=== PATIENT | male | born 1955 | race Two or more races ===

== ENCOUNTER 2017-04-01 11:32 | Emergency (ER) | payer MEDICARE, MEDICAID ==
[2017-04-01 12:36] VITALS: BP 132/84
--- NOTE | 2017-04-12 22:00 | UC ---
Throat Pain/Nasal Yasir HPI - HPI Summary HPI Summary: Sore throat for a few days. There is no fever or congestion. No GI complaints. No cough. - History of Current Complaint Chief Complaint: UCRespiratory Stated Complaint: SORE THROAT Time Seen by Provider: 04/01/17 12:29 Hx Obtained From: Patient Onset/Duration: Gradual Onset, Lasting Days Severity: Moderate Pain Intensity: 7 Pain Scale Used: 0-10 Numeric Cough: None Associated Signs & Symptoms: Positive: Dysphagia - Allergies/Home Medications Allergies/Adverse Reactions: Allergies Allergy/AdvReac Type Severity Reaction Status Date / Time No Known Allergies Allergy Verified 04/01/17 12:24 Home Medications: Home Medications Hydrocodone Bitartrate [Zohydro ER] 15 mg PO Q4H PRN 04/01/17 [History Confirmed 04/01/17] PMH/Surg Hx/FS Hx/Imm Hx Previously Healthy: Yes - Surgical History Surgical History: Yes Surgery Procedure, Year, and Place: [facility] 01/2017 [facility] - Family History Known Family History: Positive: Other - no throat related family history. - Social History Alcohol Use: None Substance Use Type: Marijuana, Prescribed Substance Use Comment - Amount & Last Used: marijuana 2016 Smoking Status (MU): Former Smoker When Did the Patient Quit Smoking/Using Tobacco: 2007 Review of Systems ENT: Sore Throat All Other Systems Reviewed And Are Negative: Yes Physical Exam Triage Information Reviewed: Yes Appearance: Well-Appearing, No Pain Distress, Well-Nourished Vital Signs: Initial Vital Signs Temp 98.4 F 04/01/17 12:29 Pulse 72 04/01/17 12:29 Resp 20 04/01/17 12:29 BP 132/84 04/01/17 12:29 Pulse Ox 96 04/01/17 12:29 Vital Signs Reviewed: Yes Eyes: Positive: Conjunctiva Clear ENT: Positive: Normal ENT inspection, Pharyngeal erythema, TMs normal. Negative : TM bulging, TM dull, TM red, Tonsillar swelling, Tonsillar exudate Neck: Positive: Supple, Nontender, No Lymphadenopathy Respiratory: Positive: Normal breath sounds, No respiratory distress, No accessory muscle use. Negative: Respiratory distress, Decreased breath sounds, Accessory muscle use, Crackles, Rhonchi, Stridor Cardiovascular: Positive: RRR, No Murmur, Pulses Normal, Brisk Capillary Refill Abdomen Description: Positive: Nontender, No Organomegaly. Negative: Distended , Guarding Musculoskeletal: Positive: Strength Intact, ROM Intact, No Edema Neurological: Positive: Alert, Muscle Tone Normal. Negative: Fatigued Psychological: Positive: Age Appropriate Behavior Skin: Negative: rashes Throat Pain/Nasal Course/Dx - Differential Dx/Diagnosis Provider Diagnoses: pharyngitis. possible thrush. Discharge - Discharge Plan Condition: Good Disposition: HOME Prescriptions: Nystatin SUSPENSION ORAL SYR* 100,000 units PO TID #200 udc Patient Education Materials: Pharyngitis (ED), Oral Candidiasis (ED) Referrals: No Primary Care Phys,NOPCP [Primary Care Provider] - Additional Instructions: REturn for any worsening or if this does not improve.
== END 2017-04-01 13:22 | disposition home or self-care (01) ==
LOC: UCCORT 11:32
DX: J02.9 Acute pharyngitis, unspecified (principal); Z90.49 Acquired absence of other specified parts of digestive tract; F12.90 Cannabis use, unspecified, uncomplicated; Z87.891 Personal history of nicotine dependence
CPT/HCPCS: 87651; 99212; G0463

== ENCOUNTER 2021-04-21 16:21 | Inpatient (IN) ==
[2021-04-21 16:36] LABS: ABS Lymphocytes 0.7 10^3/ul (1.0-4.8); ABS Monocytes 0.4 10^3/ul (0-0.8); ABS Neutrophils 5.4 10^3/ul (1.5-7.7); Eosinophil % 0.1 %; Hematocrit 47 % (42-52); Hemoglobin 14.7 g/dL (14.0-18.0); Lymphocyte % 10.5 %; Mean Corpuscular HGB Conc 31 g/dL (31-36); Mean Corpuscular Hemoglobin 29 pg (27-31); Mean Corpuscular Volume 93 fL (80-94); Nucleated Red Blood Cells % 0.1; Platelet Count 197 10^3/uL (150-450); Red Blood Count 5.05 10^6 /uL (4.18-5.48); Red Cell Distribution Width 17 % (10-15); White Blood Count 6.5 10^3/uL (3.5-10.8)
[2021-04-21 16:53] LABS: ALT 22 U/L (7-52); AST 25 U/L (13-39); Albumin 4.5 g/dL (3.2-5.2); Albumin/Globulin Ratio 1.3 (1-3); Alkaline Phosphatase 84 U/L (35-149); Anion Gap 21 mmol/L (2-11); Blood Urea Nitrogen 30 mg/dL (6-24); CO2 Carbon Dioxide 23 mmol/L (22-32); Calcium 9.3 mg/dL (8.6-10.3); Chloride 96 mmol/L (101-111); Globulin 3.5 g/dL (2-4); Glucose 233 mg/dL (70-100); Potassium 4.8 mmol/L (3.5-5.0); Sodium 140 mmol/L (135-145); eGFR CKD-EPI 31.9 (>60)
[2021-04-21 16:55] LABS: Troponin I 0.02 ng/mL (<0.03)
[2021-04-21 17:04] LABS: Acetaminophen < 15 mcg/mL; Alcohol, S < 13 mg/dL (<13); Salicylate < 2.50 mg/dL (<30)
[2021-04-21] MEDS ORDERED: Lactated Ringers 1000 ml BAG 1,000 ML IV ONE ×2 (17:07→20:27)
[2021-04-21] MEDS ORDERED: Ondansetron 4 mg VIAL 2 MG/ML 2 ml VIAL IV ONE (17:20)
[2021-04-21] MEDS ORDERED: Azithromycin 500 mg/250 ml NS 500 MG/250 ML BAG IVPB ONE (17:36)
[2021-04-21] MEDS ORDERED: cefTRIAXone 2 GM ADDV.VIAL 2 GM in NS 0.9% 100 ml BAG 100 ML IVPB ONE (17:36)
[2021-04-21 19:16] LABS: Urine Appearance Cloudy; Urine Bilirubin Negative (Negative); Urine Blood 1+ (Negative); Urine Color Yellow; Urine Glucose Negative (Negative); Urine Ketones Trace (Negative); Urine Nitrite Negative (Negative); Urine Protein 1+(30 mg/dL) (Negative); Urine Specific Gravity 1.019 (1.002-1.030); Urine Urobilinogen Negative (Negative)
[2021-04-21 19:22] LABS: Urine Bacteria Absent (Absent); Urine Red Blood Cell Trace(0-2/hpf) (Absent); Urine Squamous Epithelial Cell Present (Absent); Urine White Blood Cell Trace(0-5/hpf) (Absent)
[2021-04-21] MEDS ORDERED: Ondansetron 4 mg VIAL 2 MG/ML 2 ml VIAL IV PRN (21:07)
[2021-04-21] MEDS ORDERED: Piperacillin/Tazobac ADVAN 3.375 GM in NS 0.9% 100 ml BAG 100 ML IV ONE (21:15)
[2021-04-21] MEDS ORDERED: Dextrose 50% Syringe 50 ml 25 GM/50 ML SYRINGE IV PUSH PRN (21:25)
[2021-04-21] MEDS ORDERED: NS 0.9% 1000 ml BAG 1,000 ML IV SCH (21:30)
[2021-04-21] MEDS ORDERED: Zosyn per Pharmacy NOTE FOLLOW UP SCH (22:00)
[2021-04-21 22:08] LABS: Urine Benzodiazepine Screen None Detected (None Detect); Urine Cannabinoids Screen None Detected (None Detect); Urine Opiates Screen Presumptive Positive (None Detect)
[2021-04-21 22:33] LABS: Urine Creatinine Concentration 155.94 mg/dL
[2021-04-22] MEDS: Enoxaparin 40 MG/0.4 ML SYR SUBCUT SCH ×2 (01:11→20:24)
[2021-04-22] MEDS ORDERED: ZOSYN 3.375 GM Q8H per EXTENDED INFUSION IV SCH (02:00)
[2021-04-22 05:18] LABS: ABS Lymphocytes 0.9 10^3/ul (1.0-4.8); ABS Monocytes 0.7 10^3/ul (0-0.8); Eosinophil % 0.1 %; Hematocrit 38 % (42-52); Hemoglobin 12.5 g/dL (14.0-18.0); Lymphocyte % 11.3 %; Mean Corpuscular HGB Conc 33 g/dL (31-36); Mean Corpuscular Hemoglobin 29 pg (27-31); Mean Corpuscular Volume 89 fL (80-94); Mean Platelet Volume 7.1 fL (7.4-10.4); Nucleated Red Blood Cells % 0.1; Platelet Count 147 10^3/uL (150-450); Red Blood Count 4.28 10^6 /uL (4.18-5.48); Red Cell Distribution Width 16 % (10-15); White Blood Count 7.5 10^3/uL (3.5-10.8)
[2021-04-22 05:31] LABS: Calcium 8.2 mg/dL (8.6-10.3); Potassium 4.5 mmol/L (3.5-5.0)
[2021-04-22] MEDS: DULoxetine DR 30 mg CAP PO SCH (09:35)
[2021-04-22] MEDS: CMC:Meloxicam 7.5 mg TAB (NF) PO SCH (09:36)
[2021-04-22] MEDS: cefTRIAXone 1 gm/50 mL NS BAG 1 GM/50 ML BAG IVPB SCH (18:02)
[2021-04-23 05:44] LABS: ABS Eosinophils 0.2 10^3/ul (0-0.6); ABS Lymphocytes 1.8 10^3/ul (1.0-4.8); ABS Monocytes 0.6 10^3/ul (0-0.8); ABS Neutrophils 4.2 10^3/ul (1.5-7.7); Eosinophil % 3.4 %; Hematocrit 40 % (42-52); Hemoglobin 12.8 g/dL (14.0-18.0); Lymphocyte % 26.7 %; Mean Corpuscular HGB Conc 32 g/dL (31-36); Mean Corpuscular Hemoglobin 29 pg (27-31); Mean Corpuscular Volume 91 fL (80-94); Mean Platelet Volume 7.6 fL (7.4-10.4); Platelet Count 134 10^3/uL (150-450); Red Blood Count 4.38 10^6 /uL (4.18-5.48); Red Cell Distribution Width 16 % (10-15); White Blood Count 6.9 10^3/uL (3.5-10.8)
[2021-04-23 05:58] LABS: Albumin 3.5 g/dL (3.2-5.2); Albumin/Globulin Ratio 1.2 (1-3); Calcium 8.5 mg/dL (8.6-10.3); Potassium 4.4 mmol/L (3.5-5.0); Total Bilirubin 0.3 mg/dL (0.2-1.0); Total Protein 6.5 g/dL (6.4-8.9); eGFR CKD-EPI 96.5 (>60)
[2021-04-23] MEDS: CMC:Meloxicam 7.5 mg TAB (NF) PO SCH (09:15)
[2021-04-23] MEDS: DULoxetine DR 30 mg CAP PO SCH (09:19)
[2021-04-23] MEDS: cefTRIAXone 1 gm/50 mL NS BAG 1 GM/50 ML BAG IVPB SCH (18:43)
[2021-04-23] MEDS: Enoxaparin 40 MG/0.4 ML SYR SUBCUT SCH (21:27)
[2021-04-24 06:52] LABS: ABS Eosinophils 0.3 10^3/ul (0-0.6); ABS Lymphocytes 1.6 10^3/ul (1.0-4.8); ABS Monocytes 0.6 10^3/ul (0-0.8); ABS Neutrophils 4.1 10^3/ul (1.5-7.7); Eosinophil % 4.6 %; Hematocrit 41 % (42-52); Hemoglobin 13.2 g/dL (14.0-18.0); Lymphocyte % 23.5 %; Mean Corpuscular HGB Conc 33 g/dL (31-36); Mean Corpuscular Hemoglobin 29 pg (27-31); Mean Corpuscular Volume 89 fL (80-94); Mean Platelet Volume 7.2 fL (7.4-10.4); Platelet Count 141 10^3/uL (150-450); Red Blood Count 4.55 10^6 /uL (4.18-5.48); Red Cell Distribution Width 16 % (10-15); White Blood Count 6.6 10^3/uL (3.5-10.8)
[2021-04-24 07:08] LABS: Albumin 3.4 g/dL (3.2-5.2); Albumin/Globulin Ratio 1.1 (1-3); Calcium 8.8 mg/dL (8.6-10.3); Potassium 4.3 mmol/L (3.5-5.0); Total Bilirubin 0.4 mg/dL (0.2-1.0); Total Protein 6.4 g/dL (6.4-8.9); eGFR CKD-EPI 98.7 (>60)
[2021-04-24] MEDS: CMC:Meloxicam 7.5 mg TAB (NF) PO SCH (09:15)
[2021-04-24] MEDS: DULoxetine DR 30 mg CAP PO SCH (09:16)
[2021-04-24 15:53] VITALS: BP 145/61
== END 2021-04-24 17:26 | disposition home or self-care (01) | DRG 70 ==
LOC: ED 16:21 → EDHOLD 16:21 → SUATTDRO 21:07 → MEDTELE 04-22 00:10 → SUATTDRO 04-22 13:25
PROVIDERS: ADMIT Internal Medicine; ATTEND Hospitalist

== ENCOUNTER 2021-04-27 14:53 | Observation (INO) ==
[2021-04-27] MEDS ORDERED: Albuterol/Ipratropium NEB.SOL (2.5/0.5 MG) 3 ML NEB.SOLN INH ONE (15:41)
[2021-04-27 15:59] LABS: PCO2 Arterial 59 mmHg (35-45); PO2 Arterial 68 mmHg (80-100)
[2021-04-27 16:16] LABS: ABS Lymphocytes 0.4 10^3/ul (1.0-4.8); ABS Monocytes 0.6 10^3/ul (0-0.8); ABS Neutrophils 6.5 10^3/ul (1.5-7.7); Hematocrit 46 % (42-52); Hemoglobin 14.8 g/dL (14.0-18.0); Lymphocyte % 5.8 %; Mean Corpuscular HGB Conc 32 g/dL (31-36); Mean Corpuscular Hemoglobin 29 pg (27-31); Mean Corpuscular Volume 90 fL (80-94); Mean Platelet Volume 7.3 fL (7.4-10.4); Platelet Count 178 10^3/uL (150-450); Red Blood Count 5.12 10^6 /uL (4.18-5.48); Red Cell Distribution Width 16 % (10-15); White Blood Count 7.6 10^3/uL (3.5-10.8)
[2021-04-27] MEDS ORDERED: NS 0.9% 1000 ml BAG 1,000 ML IV ONE ×2 (16:32→18:40)
[2021-04-27 16:36] LABS: ALT 29 U/L (7-52); Albumin 4.3 g/dL (3.2-5.2); Albumin/Globulin Ratio 1.2 (1-3); Alkaline Phosphatase 72 U/L (35-149); Blood Urea Nitrogen 29 mg/dL (6-24); CO2 Carbon Dioxide 34 mmol/L (22-32); Calcium 9.1 mg/dL (8.6-10.3); Chloride 97 mmol/L (101-111); Creatine Kinase 91 U/L (10-223); Globulin 3.6 g/dL (2-4); Glucose 124 mg/dL (70-100); Sodium 138 mmol/L (135-145); Total Protein 7.9 g/dL (6.4-8.9); eGFR CKD-EPI 28.5 (>60)
[2021-04-27 16:47] LABS: Anion Gap 7 mmol/L (2-11)
[2021-04-27 17:50] LABS: Magnesium 2.1 mg/dL (1.9-2.7); Potassium Redraw 4.7 mmol/L (3.5-5.0)
[2021-04-27 18:00] LABS: Urine Appearance Cloudy; Urine Bilirubin Negative (Negative); Urine Blood 1+ (Negative); Urine Color Yellow; Urine Glucose Negative (Negative); Urine Ketones Negative (Negative); Urine Nitrite Negative (Negative); Urine Protein 1+(30 mg/dL) (Negative); Urine Specific Gravity 1.014 (1.002-1.030); Urine Urobilinogen Negative (Negative)
[2021-04-27 18:07] LABS: Urine Bacteria 1+ (Absent); Urine Red Blood Cell Trace(0-2/hpf) (Absent); Urine Squamous Epithelial Cell Present (Absent); Urine White Blood Cell Trace(0-5/hpf) (Absent)
[2021-04-27] MEDS ORDERED: Dextrose 50% Syringe 50 ml 25 GM/50 ML SYRINGE IV PUSH PRN (18:34)
[2021-04-27] MEDS ORDERED: Albuterol HFA INHALER 8 gm MDI INH PRN (18:40)
[2021-04-27] MEDS: Enoxaparin 40 MG/0.4 ML SYR SUBCUT SCH (19:44)
[2021-04-28 05:47] LABS: ABS Lymphocytes 1.5 10^3/ul (1.0-4.8); ABS Monocytes 0.7 10^3/ul (0-0.8); ABS Neutrophils 5.3 10^3/ul (1.5-7.7); Eosinophil % 0.4 %; Hematocrit 39 % (42-52); Hemoglobin 12.6 g/dL (14.0-18.0); Lymphocyte % 19.7 %; Mean Corpuscular HGB Conc 32 g/dL (31-36); Mean Corpuscular Hemoglobin 29 pg (27-31); Mean Corpuscular Volume 89 fL (80-94); Mean Platelet Volume 7.3 fL (7.4-10.4); Platelet Count 133 10^3/uL (150-450); Red Cell Distribution Width 16 % (10-15); White Blood Count 7.5 10^3/uL (3.5-10.8)
[2021-04-28 06:11] LABS: Albumin 3.6 g/dL (3.2-5.2); Albumin/Globulin Ratio 1.3 (1-3); Calcium 8.1 mg/dL (8.6-10.3); Globulin 2.8 g/dL (2-4); Potassium 4.8 mmol/L (3.5-5.0); Total Bilirubin 0.3 mg/dL (0.2-1.0); Total Protein 6.4 g/dL (6.4-8.9); eGFR CKD-EPI 64.7 (>60)
[2021-04-28] MEDS: Mometasone/Formoter 200/5 MDI INH SCH ×2 (07:26→19:20)
[2021-04-28] MEDS: Fluticasone NASAL SPRAY 50MCG 16 gm SPRAY BTL INTRANASAL SCH (08:17)
[2021-04-28] MEDS: Multivitamins/Minerals TAB PO SCH (08:18)
[2021-04-28] MEDS: DULoxetine DR 30 mg CAP PO SCH (08:18)
[2021-04-28] MEDS: Polyethylene Glycol 3350 17 GM PACKET PO SCH ×2 (08:19→08:22)
[2021-04-28] MEDS: NS 0.9% 1000 ml BAG 1,000 ML IV SCH ×2 (08:25→17:52)
[2021-04-28] MEDS: Enoxaparin 40 MG/0.4 ML SYR SUBCUT SCH (20:55)
[2021-04-29] MEDS: Mometasone/Formoter 200/5 MDI INH SCH (07:17)
[2021-04-29 09:50] LABS: Calcium 8.5 mg/dL (8.6-10.3); Potassium 4.2 mmol/L (3.5-5.0)
[2021-04-29] MEDS: DULoxetine DR 30 mg CAP PO SCH (10:14)
[2021-04-29] MEDS: Multivitamins/Minerals TAB PO SCH (10:15)
[2021-04-29] MEDS: Fluticasone NASAL SPRAY 50MCG 16 gm SPRAY BTL INTRANASAL SCH (10:16)
[2021-04-29] MEDS: Polyethylene Glycol 3350 17 GM PACKET PO SCH (10:16)
[2021-04-29 14:08] LABS: C Reactive Protein 8.81 mg/L (<8.01)
[2021-04-29 17:56] VITALS: BP 125/61
== END 2021-04-29 18:00 | disposition home or self-care (01) ==
LOC: ED 14:53 → EDHOLD 14:53 → MEDTELE 21:29
PROVIDERS: ADMIT Nurse Practitioner Adult Health; ATTEND Hospitalist

== ENCOUNTER 2022-02-27 19:04 | Inpatient (IN) ==
[2022-02-27 19:21] LABS: ABS Lymphocytes 0.7 10^3/ul (1.0-4.8); ABS Monocytes 1.1 10^3/ul (0-0.8); ABS Neutrophils 10.7 10^3/ul (1.5-7.7); Hematocrit 49 % (42-52); Lymphocyte % 5.5 %; Mean Corpuscular HGB Conc 33 g/dL (31-36); Mean Corpuscular Hemoglobin 29 pg (27-31); Mean Corpuscular Volume 87 fL (80-94); Mean Platelet Volume 7.2 fL (7.4-10.4); Nucleated Red Blood Cells % 0.1; Platelet Count 182 10^3/uL (150-450); Red Cell Distribution Width 16 % (10-15); White Blood Count 12.5 10^3/uL (3.5-10.8)
[2022-02-27 19:32] LABS: PCO2 Arterial 32 mmHg (35-45); PO2 Arterial 79 mmHg (80-100)
[2022-02-27] MEDS ORDERED: Lactated Ringers 1000 ml BAG 1,000 ML IV ONE ×3 (19:34→20:09)
[2022-02-27 19:42] LABS: High Sens Troponin Baseline 574 pg/mL (<20)
[2022-02-27] MEDS ORDERED: Acetaminophen IV 1 GM/100ML 1,000 MG/100 ML BAG IV ONE (19:45)
[2022-02-27] MEDS ORDERED: Piperacillin/Tazobac ADVAN 3.375 GM in NS 0.9% 100 ml BAG 100 ML IV ONE ×2 (19:54→21:30)
[2022-02-27] MEDS ORDERED: Vancomycin 1,500 MG in NS 0.9% 250 ml 250 ML IVPB ONE (19:54)
[2022-02-27 19:59] LABS: ALT 82 U/L (7-52); AST 185 U/L (13-39); Acetaminophen < 15 mcg/mL; Albumin/Globulin Ratio 1.4 (1-3); Alcohol, S < 13 mg/dL (<13); Alkaline Phosphatase 80 U/L (35-149); Anion Gap 19 mmol/L (2-11); Blood Urea Nitrogen 50 mg/dL (6-24); CO2 Carbon Dioxide 25 mmol/L (22-32); Calcium 9.1 mg/dL (8.6-10.3); Chloride 98 mmol/L (101-111); Globulin 2.8 g/dL (2-4); Glucose 96 mg/dL (70-100); Potassium 4.6 mmol/L (3.5-5.0); Salicylate < 2.50 mg/dL (<30); Sodium 142 mmol/L (135-145); Total Protein 6.8 g/dL (6.4-8.9)
[2022-02-27 20:53] LABS: High Sensitivity Troponin 1 Hr 646 pg/mL (<20)
[2022-02-27] MEDS ORDERED: Vancomycin 2,000 MG in NS 0.9% 500 ml BAG 500 ML IVPB ONE (21:00)
[2022-02-27] MEDS ORDERED: Acetaminophen IV 1 GM/100ML 1,000 MG/100 ML BAG IV PRN (21:30)
[2022-02-27] MEDS ORDERED: Dextrose 50% Syringe 50 ml 25 GM/50 ML SYRINGE IV PUSH PRN (21:30)
[2022-02-27] MEDS ORDERED: Albuterol 2.5mg/3 ml (0.083%) NEB.SOLN INH PRN (21:38)
[2022-02-27 21:55] LABS: C Reactive Protein 84.17 mg/L (<8.01)
[2022-02-27] MEDS ORDERED: Heparin 5000 UNITS/ML 1 mL VIAL SUBCUT SCH (22:00)
[2022-02-27] MEDS ORDERED: Azithromycin 500 mg/250 ml NS 500 MG/250 ML BAG IVPB SCH (22:00)
[2022-02-27] MEDS ORDERED: Zosyn per Pharmacy NOTE FOLLOW UP SCH (22:00)
[2022-02-27] MEDS ORDERED: Lactated Ringers 1000 ml BAG 1,000 ML IV SCH ×2 (22:00→22:28)
[2022-02-27 22:16] LABS: Creatine Kinase 9826 U/L (10-223)
[2022-02-27 22:54] LABS: Erythrocyte Sed Rate 18 mm/Hr (0-19)
[2022-02-28] MEDS: DOXYcycline 100 MG in NS 0.9% 250 ml 250 ML IVPB SCH ×3 (00:23→20:58)
[2022-02-28] MEDS: Nystatin TOP POWDER 15 GM BTL TOPICAL SCH ×4 (00:24→20:38)
[2022-02-28] MEDS: ZOSYN 3.375 GM Q8H per EXTENDED INFUSION IV SCH ×3 (00:24→17:26)
[2022-02-28] MEDS ORDERED: Lorazepam PYXIS KEY PRN (02:40)
[2022-02-28] MEDS ORDERED: LORazepam 2 mg VIAL 1 ml IV PUSH ONE (02:40)
[2022-02-28] MEDS ORDERED: Lorazepam PYXIS KEY ONE (02:53)
[2022-02-28 05:14] LABS: ABS Basophils 0.1 10^3/ul (0-0.2); ABS Lymphocytes 1.2 10^3/ul (1.0-4.8); ABS Neutrophils 9.8 10^3/ul (1.5-7.7); Hematocrit 43 % (42-52); Hemoglobin 14.3 g/dL (14.0-18.0); Mean Corpuscular HGB Conc 33 g/dL (31-36); Mean Corpuscular Hemoglobin 28 pg (27-31); Mean Corpuscular Volume 85 fL (80-94); Mean Platelet Volume 7.3 fL (7.4-10.4); Nucleated Red Blood Cells % 0.1; Platelet Count 172 10^3/uL (150-450); Red Blood Count 5.03 10^6 /uL (4.18-5.48); Red Cell Distribution Width 16 % (10-15)
[2022-02-28 05:24] LABS: Activated Partial Thrombo Time 26.9 seconds (26.0-38.0); INR 1.45 (0.88-1.18)
[2022-02-28 05:32] LABS: Urine Creatinine Concentration 87.37 mg/dL
[2022-02-28 05:35] LABS: Urine Bacteria 1+ (Absent); Urine Red Blood Cell 1+(3-5/hpf) (Absent); Urine White Blood Cell 2+(11-20/hpf) (Absent)
[2022-02-28 05:45] LABS: Urine Appearance Cloudy; Urine Bilirubin Negative (Negative); Urine Blood 3+ (Large) (Negative); Urine Color Yellow; Urine Glucose Negative (Negative); Urine Ketones Trace (Negative); Urine Nitrite Negative (Negative); Urine Protein 2+ (100 mg/dL) (Negative); Urine Urobilinogen 0.2 (Negative) (Negative); Urine pH 5.5 (5.0-9.0)
[2022-02-28 05:59] LABS: Albumin 3.2 g/dL (3.2-5.2); Albumin/Globulin Ratio 1.3 (1-3); Direct Bilirubin 0.2 mg/dL (0.03-0.18); Globulin 2.4 g/dL (2-4); Indirect Bilirubin 0.5 mg/dL (0.3-1.0); Potassium 4.3 mmol/L (3.5-5.0); Total Bilirubin 0.7 mg/dL (0.2-1.0); Total Protein 5.6 g/dL (6.4-8.9)
[2022-02-28] MEDS: Mometasone/Formoter 200/5 MDI INH SCH ×2 (07:38→18:58)
[2022-02-28] MEDS ORDERED: Sulfur Hexaflouride MICROSPHR 25 MG VIAL ONE (08:32)
[2022-02-28] MEDS: Pantoprazole VIAL 40 MG VIAL IV SCH (08:56)
[2022-02-28] MEDS ORDERED: Thiamine 100 MG/ML 2 ml VIAL (200 mg) IM ONE (10:20)
[2022-02-28] MEDS: Lactated Ringers 1000 ml BAG 1,000 ML IV SCH (10:47)
[2022-02-28] MEDS ORDERED: Multivitamins/Minerals TAB PO SCH (11:00)
[2022-02-28] MEDS: Heparin 5000 UNITS/ML 1 mL VIAL SUBCUT SCH ×2 (11:11→20:38)
[2022-02-28] MEDS: LORazepam 2 mg VIAL 1 ml IV PUSH SCH ×3 (11:27→20:52)
[2022-02-28] MEDS ORDERED: Thiamine IV 100 MG/ML VIAL (only for Bannana Bags !) IVPB SCH (12:00)
[2022-02-28] MEDS ORDERED: Thiamine 100 MG/ML 2 ml VIAL 100 MG, Folic Acid IV 1 MG, Multiple Vitamin IV ADULT 10 M... IV ONE (12:30)
[2022-02-28] MEDS: Thiamine 100 MG/ML 2 ml VIAL 500 MG in NS 0.9% 250 ml 250 ML IV SCH ×2 (17:23→20:57)
[2022-02-28 18:50] LABS: PCO2 Arterial 34 mmHg (35-45); PO2 Arterial 79 mmHg (80-100)
[2022-02-28] MEDS: Thiamine IV 500 MG in NS 0.9% 250 ML (Wernicke-Korsakoff) IV SCH (20:41)
[2022-02-28 22:07] LABS: ABS Lymphocytes 1.4 10^3/ul (1.0-4.8); Eosinophil % 0.1 %; Hematocrit 38 % (42-52); Hemoglobin 12.2 g/dL (14.0-18.0); Lymphocyte % 13.1 %; Mean Corpuscular HGB Conc 33 g/dL (31-36); Mean Corpuscular Hemoglobin 29 pg (27-31); Mean Corpuscular Volume 88 fL (80-94); Mean Platelet Volume 7.1 fL (7.4-10.4); Platelet Count 168 10^3/uL (150-450); Red Blood Count 4.29 10^6 /uL (4.18-5.48); Red Cell Distribution Width 16 % (10-15); White Blood Count 10.4 10^3/uL (3.5-10.8)
[2022-02-28 22:15] LABS: Activated Partial Thrombo Time 25.6 seconds (26.0-38.0); INR 1.65 (0.88-1.18)
[2022-02-28 22:45] LABS: eGFR CKD-EPI 50.7 (>60)
[2022-03-01] MEDS: ZOSYN 3.375 GM Q8H per EXTENDED INFUSION IV SCH ×3 (00:25→16:40)
[2022-03-01] MEDS: LORazepam 2 mg VIAL 1 ml IV PUSH SCH ×4 (00:33→09:42)
[2022-03-01] MEDS: Lactated Ringers 1000 ml BAG 1,000 ML IV SCH ×2 (06:22→22:32)
[2022-03-01 06:41] LABS: ABS Lymphocytes 1.8 10^3/ul (1.0-4.8); ABS Neutrophils 8.1 10^3/ul (1.5-7.7); Eosinophil % 0.1 %; Hematocrit 40 % (42-52); Lymphocyte % 16.8 %; Mean Corpuscular HGB Conc 33 g/dL (31-36); Mean Corpuscular Hemoglobin 29 pg (27-31); Mean Corpuscular Volume 89 fL (80-94); Mean Platelet Volume 7.1 fL (7.4-10.4); Platelet Count 176 10^3/uL (150-450); Red Blood Count 4.48 10^6 /uL (4.18-5.48); Red Cell Distribution Width 16 % (10-15)
[2022-03-01 07:27] LABS: Blood Urea Nitrogen 30 mg/dL (6-24); CO2 Carbon Dioxide 25 mmol/L (22-32); Chloride 111 mmol/L (101-111); Glucose 83 mg/dL (70-100); Magnesium 1.9 mg/dL (1.9-2.7); eGFR CKD-EPI 62.5 (>60)
[2022-03-01 07:33] LABS: Sodium 147 mmol/L (135-145)
[2022-03-01 07:36] LABS: Anion Gap 11 mmol/L (2-11)
[2022-03-01] MEDS: Mometasone/Formoter 200/5 MDI INH SCH ×2 (07:41→19:31)
[2022-03-01] MEDS: Thiamine 100 MG/ML 2 ml VIAL 500 MG in NS 0.9% 250 ml 250 ML IV SCH ×3 (08:05→21:53)
[2022-03-01] MEDS: Pantoprazole VIAL 40 MG VIAL IV SCH (08:29)
[2022-03-01] MEDS: Heparin 5000 UNITS/ML 1 mL VIAL SUBCUT SCH ×2 (08:29→21:24)
[2022-03-01] MEDS: Nystatin TOP POWDER 15 GM BTL TOPICAL SCH ×3 (10:19→21:20)
[2022-03-01 10:43] LABS: PCO2 Arterial 46 mmHg (35-45); PO2 Arterial 130 mmHg (80-100)
[2022-03-01] MEDS: DOXYcycline 100 MG in NS 0.9% 250 ml 250 ML IVPB SCH ×2 (11:03→21:56)
[2022-03-01] MEDS: MULTIPLE VITAMIN IV SCH (12:25)
[2022-03-01] MEDS: NS IV SCH (12:25)
[2022-03-01] MEDS: FOLIC ACID IV SCH (12:25)
[2022-03-01] MEDS: Thiamine IV 500 MG in NS 0.9% 250 ML (Wernicke-Korsakoff) IV SCH (21:20)
[2022-03-02] MEDS: ZOSYN 3.375 GM Q8H per EXTENDED INFUSION IV SCH ×4 (01:12→23:34)
[2022-03-02 03:35] LABS: ABS Basophils 0.1 10^3/ul (0-0.2); ABS Eosinophils 0.1 10^3/ul (0-0.6); ABS Lymphocytes 1.6 10^3/ul (1.0-4.8); ABS Monocytes 0.6 10^3/ul (0-0.8); ABS Neutrophils 6.1 10^3/ul (1.5-7.7); Eosinophil % 1.1 %; Hematocrit 39 % (42-52); Hemoglobin 12.7 g/dL (14.0-18.0); Lymphocyte % 18.6 %; Mean Corpuscular HGB Conc 33 g/dL (31-36); Mean Corpuscular Hemoglobin 29 pg (27-31); Mean Corpuscular Volume 88 fL (80-94); Mean Platelet Volume 7.1 fL (7.4-10.4); Nucleated Red Blood Cells % 0.2; Platelet Count 170 10^3/uL (150-450); Red Blood Count 4.37 10^6 /uL (4.18-5.48); Red Cell Distribution Width 16 % (10-15); White Blood Count 8.5 10^3/uL (3.5-10.8)
[2022-03-02 03:50] LABS: Magnesium 1.9 mg/dL (1.9-2.7); Potassium 3.7 mmol/L (3.5-5.0); eGFR CKD-EPI 88.9 (>60)
[2022-03-02] MEDS: Thiamine 100 MG/ML 2 ml VIAL 500 MG in NS 0.9% 250 ml 250 ML IV SCH ×3 (04:51→21:03)
[2022-03-02] MEDS: Mometasone/Formoter 200/5 MDI INH SCH ×2 (07:21→19:01)
[2022-03-02] MEDS ORDERED: Magnesium Sulfate IV 1GM/100ML 1 GM/100 ML BAG IV ONE (08:20)
[2022-03-02] MEDS: Heparin 5000 UNITS/ML 1 mL VIAL SUBCUT SCH ×2 (08:48→20:57)
[2022-03-02] MEDS: Nystatin TOP POWDER 15 GM BTL TOPICAL SCH ×3 (10:12→21:06)
[2022-03-02] MEDS: Pantoprazole VIAL 40 MG VIAL IV SCH (10:12)
[2022-03-02] MEDS: DOXYcycline 100 MG in NS 0.9% 250 ml 250 ML IVPB SCH ×2 (10:14→22:24)
[2022-03-02] MEDS: Lactated Ringers 1000 ml BAG 1,000 ML IV SCH ×2 (10:53→21:02)
[2022-03-02] MEDS ORDERED: Potassium Chlor 20 meq TAB.ER PO ONE (12:29)
[2022-03-02] MEDS: FOLIC ACID IV SCH (12:45)
[2022-03-02] MEDS: NS IV SCH (12:45)
[2022-03-02] MEDS: MULTIPLE VITAMIN IV SCH (12:45)
[2022-03-02] MEDS: DULoxetine DR 30 mg CAP PO SCH (14:17)
[2022-03-02] MEDS ORDERED: Lorazepam PYXIS KEY PRN (17:07)
[2022-03-02] MEDS ORDERED: LORazepam 2 mg VIAL 1 ml IV PUSH ONE (17:07)
[2022-03-03 04:39] LABS: ABS Eosinophils 0.3 10^3/ul (0-0.6); ABS Lymphocytes 1.5 10^3/ul (1.0-4.8); ABS Monocytes 0.5 10^3/ul (0-0.8); ABS Neutrophils 4.5 10^3/ul (1.5-7.7); Eosinophil % 4.1 %; Hematocrit 39 % (42-52); Hemoglobin 12.9 g/dL (14.0-18.0); Lymphocyte % 22.4 %; Mean Corpuscular HGB Conc 33 g/dL (31-36); Mean Corpuscular Hemoglobin 29 pg (27-31); Mean Corpuscular Volume 86 fL (80-94); Mean Platelet Volume 6.6 fL (7.4-10.4); Platelet Count 155 10^3/uL (150-450); Red Blood Count 4.51 10^6 /uL (4.18-5.48); Red Cell Distribution Width 16 % (10-15); White Blood Count 6.9 10^3/uL (3.5-10.8)
[2022-03-03 05:26] LABS: Magnesium 1.9 mg/dL (1.9-2.7); eGFR CKD-EPI 94.9 (>60)
[2022-03-03] MEDS: Thiamine 100 MG/ML 2 ml VIAL 500 MG in NS 0.9% 250 ml 250 ML IV SCH ×3 (05:53→23:54)
[2022-03-03] MEDS: Lactated Ringers 1000 ml BAG 1,000 ML IV SCH (07:39)
[2022-03-03] MEDS: Mometasone/Formoter 200/5 MDI INH SCH ×2 (07:43→19:55)
[2022-03-03] MEDS: ZOSYN 3.375 GM Q8H per EXTENDED INFUSION IV SCH ×2 (07:49→16:42)
[2022-03-03] MEDS: DULoxetine DR 30 mg CAP PO SCH (08:34)
[2022-03-03] MEDS: Heparin 5000 UNITS/ML 1 mL VIAL SUBCUT SCH ×2 (08:34→23:55)
[2022-03-03] MEDS: Pantoprazole VIAL 40 MG VIAL IV SCH (08:34)
[2022-03-03] MEDS: Nystatin TOP POWDER 15 GM BTL TOPICAL SCH ×3 (09:49→23:42)
[2022-03-03] MEDS: DOXYcycline 100 MG in NS 0.9% 250 ml 250 ML IVPB SCH (10:32)
[2022-03-03] MEDS: MULTIPLE VITAMIN IV SCH (12:18)
[2022-03-03] MEDS: FOLIC ACID IV SCH (12:18)
[2022-03-03] MEDS: NS IV SCH (12:18)
[2022-03-04] MEDS: ZOSYN 3.375 GM Q8H per EXTENDED INFUSION IV SCH ×2 (02:28→07:38)
[2022-03-04] MEDS ORDERED: DOXYcycline 100 MG in NS 0.9% 250 ml 250 ML IVPB SCH (03:00)
[2022-03-04] MEDS: DOXYcycline 100 MG in NS 0.9% 250 ml 250 ML IVPB SCH (04:25)
[2022-03-04 06:38] LABS: ABS Eosinophils 0.6 10^3/ul (0-0.6); ABS Lymphocytes 1.6 10^3/ul (1.0-4.8); ABS Monocytes 0.7 10^3/ul (0-0.8); ABS Neutrophils 4.2 10^3/ul (1.5-7.7); Eosinophil % 8.9 %; Hematocrit 39 % (42-52); Lymphocyte % 22.2 %; Mean Corpuscular HGB Conc 33 g/dL (31-36); Mean Corpuscular Hemoglobin 29 pg (27-31); Mean Corpuscular Volume 88 fL (80-94); Mean Platelet Volume 6.9 fL (7.4-10.4); Platelet Count 158 10^3/uL (150-450); Red Cell Distribution Width 16 % (10-15); White Blood Count 7.2 10^3/uL (3.5-10.8)
[2022-03-04 06:51] LABS: Calcium 7.8 mg/dL (8.6-10.3); Magnesium 1.8 mg/dL (1.9-2.7); eGFR CKD-EPI 95.9 (>60)
[2022-03-04] MEDS: Mometasone/Formoter 200/5 MDI INH SCH ×3 (07:00→20:09)
[2022-03-04] MEDS: DULoxetine DR 30 mg CAP PO SCH (08:52)
[2022-03-04] MEDS: Heparin 5000 UNITS/ML 1 mL VIAL SUBCUT SCH ×2 (08:54→21:29)
[2022-03-04] MEDS: Pantoprazole VIAL 40 MG VIAL IV SCH (09:00)
[2022-03-04] MEDS: Nystatin TOP POWDER 15 GM BTL TOPICAL SCH ×3 (09:00→21:20)
[2022-03-04] MEDS ORDERED: Magnesium Sulfate IV 1GM/100ML 1 GM/100 ML BAG IV ONE (10:00)
[2022-03-04] MEDS: Thiamine 100 MG/ML 2 ml VIAL 500 MG in NS 0.9% 250 ml 250 ML IV SCH ×2 (10:59→18:36)
[2022-03-04] MEDS: MULTIPLE VITAMIN IV SCH (13:26)
[2022-03-04] MEDS: FOLIC ACID IV SCH (13:26)
[2022-03-04] MEDS: NS IV SCH (13:26)
[2022-03-05] MEDS: Thiamine 100 MG/ML 2 ml VIAL 500 MG in NS 0.9% 250 ml 250 ML IV SCH ×6 (02:26→19:25)
[2022-03-05 06:24] LABS: ABS Basophils 0.1 10^3/ul (0-0.2); ABS Eosinophils 0.7 10^3/ul (0-0.6); ABS Lymphocytes 1.4 10^3/ul (1.0-4.8); ABS Monocytes 0.6 10^3/ul (0-0.8); ABS Neutrophils 5.3 10^3/ul (1.5-7.7); Eosinophil % 8.4 %; Hematocrit 39 % (42-52); Hemoglobin 13.3 g/dL (14.0-18.0); Lymphocyte % 16.9 %; Mean Corpuscular HGB Conc 34 g/dL (31-36); Mean Corpuscular Hemoglobin 30 pg (27-31); Mean Corpuscular Volume 86 fL (80-94); Mean Platelet Volume 6.8 fL (7.4-10.4); Platelet Count 151 10^3/uL (150-450); Red Blood Count 4.51 10^6 /uL (4.18-5.48); Red Cell Distribution Width 15 % (10-15)
[2022-03-05 06:48] LABS: Albumin 3.1 g/dL (3.2-5.2); Albumin/Globulin Ratio 1.6 (1-3); Magnesium 1.9 mg/dL (1.9-2.7); Potassium 3.9 mmol/L (3.5-5.0); Total Bilirubin 0.5 mg/dL (0.2-1.0); Total Protein 5.1 g/dL (6.4-8.9); eGFR CKD-EPI 102.8 (>60)
[2022-03-05] MEDS: Nystatin TOP POWDER 15 GM BTL TOPICAL SCH ×3 (07:57→20:47)
[2022-03-05] MEDS: Heparin 5000 UNITS/ML 1 mL VIAL SUBCUT SCH ×2 (08:07→20:45)
[2022-03-05] MEDS: DULoxetine DR 30 mg CAP PO SCH (08:08)
[2022-03-05] MEDS: Pantoprazole VIAL 40 MG VIAL IV SCH (08:08)
[2022-03-05] MEDS: Mometasone/Formoter 200/5 MDI INH SCH ×2 (08:39→20:14)
[2022-03-05] MEDS: MULTIPLE VITAMIN IV SCH (12:28)
[2022-03-05] MEDS: NS IV SCH (12:28)
[2022-03-05] MEDS: FOLIC ACID IV SCH (12:28)
[2022-03-06] MEDS: Thiamine 100 MG/ML 2 ml VIAL 500 MG in NS 0.9% 250 ml 250 ML IV SCH ×3 (03:28→20:00)
[2022-03-06] MEDS: Mometasone/Formoter 200/5 MDI INH SCH ×2 (07:33→19:13)
[2022-03-06] MEDS: Nystatin TOP POWDER 15 GM BTL TOPICAL SCH ×3 (09:09→21:19)
[2022-03-06] MEDS: DULoxetine DR 30 mg CAP PO SCH (10:40)
[2022-03-06] MEDS: Pantoprazole VIAL 40 MG VIAL IV SCH (10:44)
[2022-03-06] MEDS: Heparin 5000 UNITS/ML 1 mL VIAL SUBCUT SCH ×2 (10:48→21:16)
[2022-03-06] MEDS: MULTIPLE VITAMIN IV SCH (14:39)
[2022-03-06] MEDS: FOLIC ACID IV SCH (14:39)
[2022-03-06] MEDS: NS IV SCH (14:39)
[2022-03-07] MEDS: Thiamine 100 MG/ML 2 ml VIAL 500 MG in NS 0.9% 250 ml 250 ML IV SCH ×2 (04:06→11:57)
[2022-03-07] MEDS: Mometasone/Formoter 200/5 MDI INH SCH ×2 (07:53→19:44)
[2022-03-07] MEDS: Nystatin TOP POWDER 15 GM BTL TOPICAL SCH ×3 (09:08→21:10)
[2022-03-07] MEDS: Pantoprazole VIAL 40 MG VIAL IV SCH (09:10)
[2022-03-07] MEDS: DULoxetine DR 30 mg CAP PO SCH (10:39)
[2022-03-07] MEDS: Heparin 5000 UNITS/ML 1 mL VIAL SUBCUT SCH ×2 (10:41→21:09)
[2022-03-08 05:59] LABS: ABS Basophils 0.1 10^3/ul (0-0.2); ABS Eosinophils 0.4 10^3/ul (0-0.6); ABS Lymphocytes 1.7 10^3/ul (1.0-4.8); ABS Monocytes 0.8 10^3/ul (0-0.8); ABS Neutrophils 4.4 10^3/ul (1.5-7.7); Hematocrit 42 % (42-52); Hemoglobin 13.8 g/dL (14.0-18.0); Lymphocyte % 23.3 %; Mean Corpuscular HGB Conc 33 g/dL (31-36); Mean Corpuscular Hemoglobin 29 pg (27-31); Mean Corpuscular Volume 89 fL (80-94); Mean Platelet Volume 7.1 fL (7.4-10.4); Nucleated Red Blood Cells % 0.1; Platelet Count 180 10^3/uL (150-450); Red Blood Count 4.78 10^6 /uL (4.18-5.48); Red Cell Distribution Width 16 % (10-15); White Blood Count 7.4 10^3/uL (3.5-10.8)
[2022-03-08 06:42] LABS: Calcium 8.5 mg/dL (8.6-10.3); eGFR CKD-EPI 102.3 (>60)
[2022-03-08] MEDS: Mometasone/Formoter 200/5 MDI INH SCH ×2 (07:21→20:32)
[2022-03-08] MEDS: Nystatin TOP POWDER 15 GM BTL TOPICAL SCH ×3 (08:17→20:56)
[2022-03-08] MEDS: DULoxetine DR 30 mg CAP PO SCH (08:21)
[2022-03-08] MEDS: Heparin 5000 UNITS/ML 1 mL VIAL SUBCUT SCH ×2 (08:21→20:58)
[2022-03-09 04:34] LABS: ABS Eosinophils 0.4 10^3/ul (0-0.6); ABS Lymphocytes 1.7 10^3/ul (1.0-4.8); ABS Monocytes 0.8 10^3/ul (0-0.8); ABS Neutrophils 4.6 10^3/ul (1.5-7.7); Eosinophil % 5.4 %; Hematocrit 43 % (42-52); Hemoglobin 14.1 g/dL (14.0-18.0); Mean Corpuscular HGB Conc 33 g/dL (31-36); Mean Corpuscular Hemoglobin 29 pg (27-31); Mean Corpuscular Volume 89 fL (80-94); Mean Platelet Volume 6.9 fL (7.4-10.4); Nucleated Red Blood Cells % 0.1; Platelet Count 190 10^3/uL (150-450); Red Blood Count 4.85 10^6 /uL (4.18-5.48); Red Cell Distribution Width 16 % (10-15); White Blood Count 7.6 10^3/uL (3.5-10.8)
[2022-03-09] MEDS: Mometasone/Formoter 200/5 MDI INH SCH ×2 (07:00→19:07)
[2022-03-09] MEDS: Heparin 5000 UNITS/ML 1 mL VIAL SUBCUT SCH ×2 (09:45→20:46)
[2022-03-09] MEDS: DULoxetine DR 30 mg CAP PO SCH (09:46)
[2022-03-09] MEDS: Nystatin TOP POWDER 15 GM BTL TOPICAL SCH ×3 (09:48→20:47)
[2022-03-09] MEDS ORDERED: Polyethylene Glycol 3350 17 GM PACKET PO PRN (10:59)
[2022-03-09] MEDS ORDERED: Senna TAB 8.6 mg TAB PO PRN (10:59)
[2022-03-09] MEDS ORDERED: Magnesium Hydroxide LIQ 30 ML UDC PO PRN (10:59)
[2022-03-09] MEDS: Magnesium Hydroxide LIQ 30 ML UDC PO SCH (20:46)
[2022-03-10 06:17] LABS: ABS Eosinophils 0.3 10^3/ul (0-0.6); ABS Lymphocytes 1.9 10^3/ul (1.0-4.8); ABS Monocytes 0.7 10^3/ul (0-0.8); ABS Neutrophils 4.8 10^3/ul (1.5-7.7); Hematocrit 43 % (42-52); Hemoglobin 14.5 g/dL (14.0-18.0); Lymphocyte % 24.1 %; Mean Corpuscular HGB Conc 33 g/dL (31-36); Mean Corpuscular Hemoglobin 30 pg (27-31); Mean Corpuscular Volume 90 fL (80-94); Mean Platelet Volume 7.3 fL (7.4-10.4); Nucleated Red Blood Cells % 0.2; Platelet Count 210 10^3/uL (150-450); Red Blood Count 4.84 10^6 /uL (4.18-5.48); Red Cell Distribution Width 16 % (10-15); White Blood Count 7.8 10^3/uL (3.5-10.8)
[2022-03-10 06:33] LABS: Calcium 8.7 mg/dL (8.6-10.3); Magnesium 2.2 mg/dL (1.9-2.7); Potassium 4.5 mmol/L (3.5-5.0); eGFR CKD-EPI 98.5 (>60)
[2022-03-10] MEDS: Mometasone/Formoter 200/5 MDI INH SCH (07:46)
[2022-03-10] MEDS: Heparin 5000 UNITS/ML 1 mL VIAL SUBCUT SCH (08:27)
[2022-03-10] MEDS: Magnesium Hydroxide LIQ 30 ML UDC PO SCH (08:27)
[2022-03-10] MEDS: DULoxetine DR 30 mg CAP PO SCH (08:28)
[2022-03-10] MEDS: Nystatin TOP POWDER 15 GM BTL TOPICAL SCH ×2 (08:32→15:04)
[2022-03-10 11:20] VITALS: BP 118/69
== END 2022-03-10 16:00 | disposition home health service (06) | DRG 871 ==
LOC: ED 19:04 → SUATTDRO 21:23 → EDHOLD 21:23 → ICU 23:33 → SSU 03-03 21:29
PROVIDERS: ADMIT Internal Medicine Critical Care Medicine; ATTEND Hospitalist